=== PATIENT | male | born 1980 ===

== ENCOUNTER 2017-12-17 17:49 | Emergency (ER) | payer OTHER ==
[2017-12-17 18:06] VITALS: BP 123/72; PULSE 68; RESP 20; TEMP 97.6; O2SAT 100
[2017-12-17] MEDS ORDERED: Tetanus/Diphtheria Toxoids 0.5 ml Syringe IM ONE ×2 (18:29→18:55)
--- NOTE | 2017-12-17 18:31 | C.PDOC ---
History Of Present Illness 37 year old male is brought to the ED by ambulance for evaluation after he sustained an injury to his left big toe while at work [employer]. Patient reports that a heavy piece of metal fell onto his big toe. He denies any other injuries, deformities, extremity weakness, or sensorivascular deficits at this time. - HPI Time Seen by Provider: 12/17/17 18:10 Chief Complaint (Nursing): Trauma History Per: Patient, EMS History/Exam Limitations: no limitations Onset/Duration Of Symptoms: Hrs Injury Occurred (Timing): Just Before Arrival Location Of Injury: Left: Foot (big toe ) Additional History Per: Patient Past Medical History Reviewed: Historical Data, Nursing Documentation, Vital Signs Vital Signs: Last Vital Signs Temp 97.6 F 12/17/17 18:03 Pulse 68 12/17/17 18:03 Resp 20 12/17/17 18:03 BP 123/72 12/17/17 18:03 Pulse Ox 100 12/17/17 18:51 - Medical History PMH: No Chronic Diseases Surgical History: No Surg Hx Family History: States: Unknown Family Hx - Social History Hx Alcohol Use: No Hx Substance Use: No - Immunization History Hx Tetanus Toxoid Vaccination: No Hx Influenza Vaccination: No Hx Pneumococcal Vaccination: No Review Of Systems Musculoskeletal: Positive for: Other (injury to left big toe ) Neurological: Negative for: Weakness, Numbness Physical Exam - Physical Exam Appears: Well, Non-toxic, No Acute Distress Skin: Normal Color, Warm Extremity: Normal ROM (Left foot), Tenderness (Left 1st toe around nail with scant ecchymoses at base of nail, (+) onychomycosis. NO deformity.), Capillary Refill (less than 2sec to letf foot), No Deformity (Left foot), No Swelling Neurological/Psych: Oriented x3, Normal Speech, Normal Motor, Normal Sensation, Normal Reflexes ED Course And Treatment O2 Sat by Pulse Oximetry: 100 (on RA) Pulse Ox Interpretation: Normal - Other Rad Left foot X-Ray: Interpreted by Me, Viewed By Me Interpretation: (-) acute fx or dislocation Progress Note: Left foot XR ordered and reviewed. Tetanus IM, Tylenol PO, and Ultram PO administered. On re-eval, pt is afebrile, hemodynamicaly stable. Non -toxic. Left foot: exam c/w left 1st toe contusion, (-) deformity. FAROM, no neurovasular deficits. results review and discussed with pt. Braden tape applied to Left 1st-2nd toe, cast shoe applied to left foot. Crutches given. Pt advised.,. ref. to f/u with Podiatry in 2-3 days for re-eval. return if any new chnages. Disposition Counseled Patient/Family Regarding: Studies Performed, Diagnosis, Need For Followup, Rx Given - Disposition Referrals: [facility] [Outside] Disposition: HOME/ ROUTINE Disposition Time: 19:30 Condition: STABLE Additional Instructions: RICE-rest, ice, compression ( braden tape) , elevation take pain medication as prescribed Follow up with Podiatry clinic in 2-3 days for re-evaluation. Return to ED if any worsening or new changes. Prescriptions: traMADol [Ultram] 50 mg PO TID #7 tab Instructions: Toe Injury Forms: [facility] (Swedish), Work Excuse - Clinical Impression Clinical Impression: Toe contusion - PA / UNIT AIDE / Resident Statement MD/DO has reviewed & agrees with the documentation as recorded. - Scribe Statement The provider has reviewed the documentation as recorded by the Scribe (Gilda Rosen) All medical record entries made by the Scribe were at my direction and personally dictated by me. I have reviewed the chart and agree that the record accurately reflects my personal performance of the history, physical exam, medical decision making, and the department course for this patient. I have also personally directed, reviewed, and agree with the discharge instructions and disposition.
--- NOTE | 2017-12-18 08:27 | RAD ---
PROCEDURE: Left Foot Radiographs. HISTORY: injury COMPARISON: None. FINDINGS: BONES: No fracture identified. JOINTS: No dislocation seen. Bony articulations appear maintained. SOFT TISSUES: Unremarkable OTHER FINDINGS: None. IMPRESSION: No fracture or dislocation identified.
== END 2017-12-17 20:21 | disposition home or self-care (01) ==
LOC: C.ER 17:49
DX: S90.112A Contusion of left great toe without damage to nail, initial encounter (principal); W22.8XXA Striking against or struck by other objects, initial encounter; Y92.89 Other specified places as the place of occurrence of the external cause; Y99.0 Civilian activity done for income or pay; Z23 Encounter for immunization